=== PATIENT | male | born 1990 | race Two or more races ===

== ENCOUNTER 2024-08-25 22:07 | Inpatient (IN) | payer OTHER ==
[~2024-08-25] VITALS: Ht 177.8 cm; Wt 81.3 kg
[2024-08-25] MEDS ORDERED: 0.9% SODIUM CHLORIDE 10 ML SYRINGE IVP PRN (22:30)
[2024-08-25] MEDS: SODIUM CHLORIDE 0.9% 1,500 ML IV ONE (23:03)
[2024-08-25] MEDS: VANCOMYCIN 1GM/WATER(PEG/NADA) 200 ML IV ONE (23:03)
[2024-08-25 23:36] LABS: BASOPHILS % (AUTO) 0.4 % (0.0-2.0); EOSINOPHILS % (AUTO) 1.8 % (1.0-6.0); HEMATOCRIT 30.3 % (41-53); HEMOGLOBIN 9.7 g/dL (13.5-17.5); LYMPHOCYTES # (AUTO) 1.7 K/uL (1.0-4.8); LYMPHOCYTES % (AUTO) 11.6 % (22.0-44.0); MEAN CORPUSCULAR HEMOGLOBIN 27.3 pg (26.0-34.0); MEAN CORPUSCULAR HGB CONC 32.1 G/dL (31.0-37.0); MEAN CORPUSCULAR VOLUME 85 fL (80-100); MONOCYTES # (AUTO) 2.3 K/uL (0.1-1.0); MONOCYTES % (AUTO) 15.4 % (2.0-9.0); NEUTROPHILS # (AUTO) 10.6 K/uL (1.8-7.7); NEUTROPHILS % (AUTO) 70.8 % (40.0-70.0); PLATELET COUNT (AUTO) 402 K/uL (150-450); RED BLOOD CELL COUNT(AUTO) 3.55 MIL/uL (4.50-5.90); RED CELL DISTRIBUTION WIDTH 13.9 % (11.5-14.5)
[2024-08-25 23:43] LABS: ANION GAP 6 mmol/L (8-16); CALCIUM, TOTAL 7.9 mg/dL (8.8-10.5); CARBON DIOXIDE 31 mmol/L (22-29); CHLORIDE 99 mmol/L (98-107); CREATININE 0.55 mg/dL (0.60-1.30); GLOMERULAR FILTR. RATE CALC > 60 mL/min (>60); GLUCOSE,RANDOM 122 mg/dL (70-110); POTASSIUM 3.6 mmol/L (3.5-5.1); SODIUM SERUM 136 mmol/L (136-145); UREA NITROGEN, BLOOD 3 mg/dL (7-18)
[2024-08-25 23:47] LABS: PROTHROMBIN TIME 11.6 SEC (9.4-11.6)
[2024-08-25] MEDS ORDERED: IOHEXOL 350 MG/ML 100 ML VIAL ONE (23:50)
[2024-08-25] MEDS ORDERED: SODIUM CHLORIDE 0.9% 100 ML ONE (23:50)
[2024-08-25 23:52] LABS: LACTIC ACID 0.9 mmol/L (0.4-2.0)
[2024-08-26 03:10] VITALS: BP 101/66; PULSE 115; RESP 18; TEMP 98.9; O2SAT 98
[2024-08-26] MEDS ORDERED: MAGNESIUM HYDROXIDE SUSPENSION 30 ML UDCUP PO PRN (06:00)
[2024-08-26] MEDS ORDERED: ONDANSETRON HCL 4 MG/2 ML VIAL IVP PRN (06:00)
[2024-08-26] MEDS ORDERED: BISACODYL 10 MG RECTAL RECTAL SUPPOSITORY PR PRN (06:00)
[2024-08-26] MEDS: HEPARIN SODIUM,PORCINE 5,000 UNITS/ML VIAL SQ SCH (08:00)
[2024-08-26] MEDS: HYDROCODONE/ACETAMINOPHEN 5-325 MG TABLET PO PRN (09:07)
[2024-08-26] MEDS: DOCUSATE SODIUM 100 MG CAPSULE PO SCH (09:14)
[2024-08-26] MEDS: VANCOMYCIN 1GM/WATER(PEG/NADA) 200 ML IV SCH (09:38)
[2024-08-26] MEDS: PANTOPRAZOLE SODIUM 40 MG DR TABLET PO SCH (09:38)
[2024-08-26] MEDS: MORPHINE SULFATE 2 MG/ML SYRINGE IVP PRN (11:43)
[2024-08-26] MEDS: BUPRENORPHINE HCL/NALOXONE HCL 2-0.5 MG SUBLINGUAL TABLET SL SCH (14:45)
[2024-08-26] MEDS: VENLAFAXINE HCL 150 MG ER CAPSULE PO SCH (14:45)
[2024-08-26] MEDS: BUPRENORPHINE HCL/NALOXONE HCL 8-2 MG SUBLINGUAL TABLET SL SCH (15:27)
[2024-08-26 16:26] VITALS: BP 112/55; PULSE 111; RESP 16; TEMP 98.1
[2024-08-26 19:39] VITALS: BP 105/39; PULSE 114; RESP 18; TEMP 98.2; O2SAT 98
[2024-08-26] MEDS: QUEtiapine FUMARATE 200 MG TABLET PO SCH (22:43)
[2024-08-27 08:07] VITALS: BP 124/76; PULSE 96; RESP 20; O2SAT 96
[2024-08-27 11:50] LABS: BASOPHILS % (AUTO) 0.5 % (0.0-2.0); EOSINOPHILS % (AUTO) 2.4 % (1.0-6.0); HEMATOCRIT 27.4 % (41-53); HEMOGLOBIN 8.7 g/dL (13.5-17.5); LYMPHOCYTES # (AUTO) 1.8 K/uL (1.0-4.8); LYMPHOCYTES % (AUTO) 15.3 % (22.0-44.0); MEAN CORPUSCULAR HEMOGLOBIN 26.8 pg (26.0-34.0); MEAN CORPUSCULAR HGB CONC 31.6 G/dL (31.0-37.0); MEAN CORPUSCULAR VOLUME 85 fL (80-100); MONOCYTES # (AUTO) 1.5 K/uL (0.1-1.0); MONOCYTES % (AUTO) 12.7 % (2.0-9.0); NEUTROPHILS % (AUTO) 69.1 % (40.0-70.0); PLATELET COUNT (AUTO) 358 K/uL (150-450); RED BLOOD CELL COUNT(AUTO) 3.23 MIL/uL (4.50-5.90); WHITE BLOOD COUNT (AUTO) 11.6 K/uL (4.5-11.0)
[2024-08-27 12:07] LABS: ANION GAP 3 mmol/L (8-16); CALCIUM, TOTAL 7.8 mg/dL (8.8-10.5); CARBON DIOXIDE 31 mmol/L (22-29); CHLORIDE 105 mmol/L (98-107); CREATININE 0.56 mg/dL (0.60-1.30); GLOMERULAR FILTR. RATE CALC > 60 mL/min (>60); GLUCOSE,RANDOM 113 mg/dL (70-110); POTASSIUM 3.8 mmol/L (3.5-5.1); SODIUM SERUM 139 mmol/L (136-145); UREA NITROGEN, BLOOD 4 mg/dL (7-18); VANCOMYCIN,RANDOM 4.9 mcg/mL (25.0-50.0)
[2024-08-27 13:30] VITALS: BP 106/78; PULSE 94; RESP 18; TEMP 98.2; O2SAT 98
[2024-08-27] MEDS: VANCOMYCIN 1.25 GM/WATER(PEG) 250 ML IV SCH (15:17)
[2024-08-27 16:43] VITALS: BP 110/78; PULSE 95; RESP 17; TEMP 98.4; O2SAT 98
[2024-08-27 20:00] VITALS: BP 100/59; PULSE 95; RESP 18; TEMP 97.9; O2SAT 97
[2024-08-28] VITALS: BP 102/63; PULSE 99; RESP 17; TEMP 98.1; O2SAT 94
[2024-08-28 04:30] VITALS: BP 116/55; PULSE 102; RESP 17; TEMP 98; O2SAT 97
[2024-08-28 06:43] LABS: BASOPHILS % (AUTO) 0.3 % (0.0-2.0); EOSINOPHILS % (AUTO) 3.7 % (1.0-6.0); HEMATOCRIT 27.5 % (41-53); LYMPHOCYTES # (AUTO) 2.8 K/uL (1.0-4.8); LYMPHOCYTES % (AUTO) 23.1 % (22.0-44.0); MEAN CORPUSCULAR HEMOGLOBIN 27.8 pg (26.0-34.0); MEAN CORPUSCULAR HGB CONC 32.5 G/dL (31.0-37.0); MEAN CORPUSCULAR VOLUME 86 fL (80-100); MONOCYTES # (AUTO) 1.2 K/uL (0.1-1.0); MONOCYTES % (AUTO) 9.8 % (2.0-9.0); NEUTROPHILS # (AUTO) 7.6 K/uL (1.8-7.7); NEUTROPHILS % (AUTO) 63.1 % (40.0-70.0); PLATELET COUNT (AUTO) 403 K/uL (150-450); RED BLOOD CELL COUNT(AUTO) 3.22 MIL/uL (4.50-5.90)
[2024-08-28 07:00] LABS: ANION GAP 4 mmol/L (8-16); CARBON DIOXIDE 30 mmol/L (22-29); CHLORIDE 103 mmol/L (98-107); CREATININE 0.72 mg/dL (0.60-1.30); GLOMERULAR FILTR. RATE CALC > 60 mL/min (>60); GLUCOSE,RANDOM 100 mg/dL (70-110); POTASSIUM 3.5 mmol/L (3.5-5.1); SODIUM SERUM 137 mmol/L (136-145); UREA NITROGEN, BLOOD 7 mg/dL (7-18)
[2024-08-28 08:32] VITALS: BP 106/58; PULSE 106; RESP 18; TEMP 97.6; O2SAT 94
[2024-08-28 12:12] VITALS: BP 132/73; PULSE 71; RESP 17; TEMP 98; O2SAT 100
[2024-08-28] MEDS: GABAPENTIN 400 MG CAPSULE PO SCH (13:02)
[2024-08-28 16:05] VITALS: BP 117/76; PULSE 97; RESP 18; O2SAT 97
[2024-08-28 20:10] VITALS: BP 117/73; PULSE 112; RESP 19; TEMP 97.5; O2SAT 96
[2024-08-29 04:12] VITALS: BP 114/62; PULSE 92; RESP 17; TEMP 98.7; O2SAT 98
[2024-08-29 06:30] LABS: BASOPHILS % (AUTO) 1.3 % (0.0-2.0); HEMATOCRIT 26.7 % (41-53); HEMOGLOBIN 8.6 g/dL (13.5-17.5); LYMPHOCYTES # (AUTO) 2.3 K/uL (1.0-4.8); LYMPHOCYTES % (AUTO) 28.2 % (22.0-44.0); MEAN CORPUSCULAR HEMOGLOBIN 27.6 pg (26.0-34.0); MEAN CORPUSCULAR HGB CONC 32.3 G/dL (31.0-37.0); MEAN CORPUSCULAR VOLUME 86 fL (80-100); MONOCYTES # (AUTO) 0.9 K/uL (0.1-1.0); NEUTROPHILS # (AUTO) 4.4 K/uL (1.8-7.7); NEUTROPHILS % (AUTO) 54.5 % (40.0-70.0); PLATELET COUNT (AUTO) 365 K/uL (150-450); RED BLOOD CELL COUNT(AUTO) 3.12 MIL/uL (4.50-5.90); RED CELL DISTRIBUTION WIDTH 14.3 % (11.5-14.5); WHITE BLOOD COUNT (AUTO) 8.1 K/uL (4.5-11.0)
[2024-08-29 06:55] LABS: ANION GAP 7 mmol/L (8-16); CALCIUM, TOTAL 7.9 mg/dL (8.8-10.5); CARBON DIOXIDE 29 mmol/L (22-29); CHLORIDE 103 mmol/L (98-107); CREATININE 0.62 mg/dL (0.60-1.30); GLOMERULAR FILTR. RATE CALC > 60 mL/min (>60); GLUCOSE,RANDOM 85 mg/dL (70-110); POTASSIUM 4.1 mmol/L (3.5-5.1); SODIUM SERUM 139 mmol/L (136-145); UREA NITROGEN, BLOOD 7 mg/dL (7-18); VANCOMYCIN,RANDOM 36.5 mcg/mL (25.0-50.0)
[2024-08-29 19:01] VITALS: BP 130/73; PULSE 115; RESP 18; TEMP 98.1; O2SAT 95
[2024-08-29] MEDS ORDERED: SODIUM CHLORIDE 0.9% 500 ML IV ONE (20:00)
[2024-08-29] MEDS: VANCOMYCIN 1.25 GM/WATER(PEG) 250 ML IV SCH (20:20)
[2024-08-29 20:30] VITALS: BP 119/65; PULSE 104; RESP 20; TEMP 98.3; O2SAT 97
[2024-08-30] MEDS: VITAMINS A & D 113 GM OINTMENT TP PRN (01:49)
[2024-08-30 07:23] LABS: ANION GAP 7 mmol/L (8-16); CARBON DIOXIDE 31 mmol/L (22-29); CHLORIDE 101 mmol/L (98-107); CREATININE 0.65 mg/dL (0.60-1.30); GLOMERULAR FILTR. RATE CALC > 60 mL/min (>60); GLUCOSE,RANDOM 95 mg/dL (70-110); POTASSIUM 3.7 mmol/L (3.5-5.1); SODIUM SERUM 139 mmol/L (136-145); UREA NITROGEN, BLOOD 9 mg/dL (7-18)
[2024-08-30 07:30] LABS: CALCIUM, TOTAL 8.5 mg/dL (8.8-10.5)
[2024-08-30] MEDS: HALOPERIDOL LACTATE 5 MG/ML VIAL IM PRN (18:17)
[2024-08-30 20:16] VITALS: BP 130/72; PULSE 101; RESP 18; TEMP 98.4; O2SAT 97
[2024-08-30] MEDS: ZOLPIDEM TARTRATE 5 MG TABLET PO PRN (22:54)
[2024-08-31 03:09] VITALS: BP 122/64; PULSE 84; RESP 18; TEMP 98.2; O2SAT 96
[2024-08-31 05:49] VITALS: BP 121/61; PULSE 98; RESP 19; TEMP 98.2; O2SAT 96
[2024-08-31 07:17] LABS: ANION GAP 3 mmol/L (8-16); CALCIUM, TOTAL 8.8 mg/dL (8.8-10.5); CARBON DIOXIDE 34 mmol/L (22-29); CHLORIDE 99 mmol/L (98-107); CREATININE 0.73 mg/dL (0.60-1.30); GLOMERULAR FILTR. RATE CALC > 60 mL/min (>60); GLUCOSE,RANDOM 74 mg/dL (70-110); POTASSIUM 3.3 mmol/L (3.5-5.1); SODIUM SERUM 136 mmol/L (136-145); UREA NITROGEN, BLOOD 12 mg/dL (7-18)
[2024-08-31 09:00] VITALS: BP 126/84; PULSE 71; RESP 18; TEMP 98.3; O2SAT 96
[2024-08-31] MEDS ORDERED: POTASSIUM CHL 10 MEQ/WATER 50 ML IV PRN (12:45)
[2024-08-31] MEDS: TraMADol HCL 50 MG TABLET PO PRN (13:25)
[2024-08-31] MEDS: CLINDAMYCIN HCL 300 MG CAPSULE PO SCH (15:01)
[2024-08-31] MEDS: POTASSIUM CHLORIDE 20 MEQ ER TABLET PO PRN (15:01)
[2024-08-31] MEDS ORDERED: VANCOMYCIN 1GM/WATER(PEG/NADA) 200 ML IV SCH (16:00)
[2024-08-31 17:48] LABS: APPEARANCE,URINE CLEAR (CLEAR); BILIRUBIN,URINE NEGATIVE (NEGATIVE); COLOR,URINE COLORLESS (YELLOW); GLUCOSE, URINE (UA) NEGATIVE (NEGATIVE); KETONES,URINE NEGATIVE (NEGATIVE); LEUKOCYTE ESTERASE ,URINE NEGATIVE (NEGATIVE); NITRATE,URINE NEGATIVE (NEGATIVE); OCCULT BLOOD,URINE NEGATIVE (NEGATIVE); PH,URINE 6.5 (5.0-8.0); PROTEIN,URINE NEGATIVE (NEGATIVE); SPECIFIC GRAVITIY, URINE 1.009 (1.003-1.030); UROBILINOGEN,URINE <=1.0 mg/dL (<=1.0)
[2024-08-31 17:55] LABS: AMPHET/METH SCREEN,URINE NEGATIVE (NEGATIVE); BARBITURATE SCREEN, URINE NEGATIVE (NEGATIVE); BENZODIAZEPINES SCREEN,URINE NEGATIVE (NEGATIVE); CANNABINOID SCREEN,URINE NEGATIVE (NEGATIVE); COCAINE SCREEN,URINE NEGATIVE (NEGATIVE); METHADONE SCREEN, URINE NEGATIVE (NEGATIVE); OPIATE SCREEN,URINE POSITIVE (NEGATIVE); PHENCYCLIDINE SCREEN,URINE NEGATIVE (NEGATIVE)
[2024-08-31 17:56] LABS: ALCOHOL, URINE DRUG SCREEN NEGATIVE (NEGATIVE)
[2024-08-31 17:57] LABS: PH,URINE DRUG SCREEN 6.5 (5.0-8.0)
[2024-08-31 20:09] VITALS: BP 134/85; PULSE 102; RESP 18; TEMP 98.4; O2SAT 99
[2024-09-01] MEDS: DiphenhydrAMINE HCL 50 MG/ML VIAL IM PRN (00:47)
[2024-09-01] MEDS: ACETAMINOPHEN 325 MG TABLET PO PRN (04:45)
[2024-09-01 06:15] LABS: BASOPHILS % (AUTO) 0.8 % (0.0-2.0); EOSINOPHILS % (AUTO) 4.1 % (1.0-6.0); HEMATOCRIT 31.9 % (41-53); HEMOGLOBIN 10.6 g/dL (13.5-17.5); LYMPHOCYTES # (AUTO) 2.5 K/uL (1.0-4.8); LYMPHOCYTES % (AUTO) 34.2 % (22.0-44.0); MEAN CORPUSCULAR HEMOGLOBIN 28.2 pg (26.0-34.0); MEAN CORPUSCULAR HGB CONC 33.1 G/dL (31.0-37.0); MEAN CORPUSCULAR VOLUME 85 fL (80-100); MONOCYTES # (AUTO) 0.6 K/uL (0.1-1.0); MONOCYTES % (AUTO) 8.7 % (2.0-9.0); NEUTROPHILS # (AUTO) 3.9 K/uL (1.8-7.7); NEUTROPHILS % (AUTO) 52.2 % (40.0-70.0); PLATELET COUNT (AUTO) 506 K/uL (150-450); RED BLOOD CELL COUNT(AUTO) 3.75 MIL/uL (4.50-5.90); RED CELL DISTRIBUTION WIDTH 14.1 % (11.5-14.5); WHITE BLOOD COUNT (AUTO) 7.4 K/uL (4.5-11.0)
[2024-09-01 06:38] LABS: ALANINE AMINOTRANSFERASE 38 U/L (12-78); ALBUMIN 2.5 g/dL (3.4-5.0); ALKALINE PHOSPHATASE 79 U/L (46-116); ANION GAP 4 mmol/L (8-16); ASPARTATE AMINOTRANSFERASE 32 U/L (15-37); BILIRUBIN,TOTAL 0.2 mg/dL (0.1-1.0); CALCIUM, TOTAL 8.8 mg/dL (8.8-10.5); CARBON DIOXIDE 32 mmol/L (22-29); CHLORIDE 99 mmol/L (98-107); CREATININE 0.68 mg/dL (0.60-1.30); GLOMERULAR FILTR. RATE CALC > 60 mL/min (>60); GLUCOSE,RANDOM 73 mg/dL (70-110); POTASSIUM 3.7 mmol/L (3.5-5.1); SODIUM SERUM 135 mmol/L (136-145); TOTAL PROTEIN, SERUM 7.8 g/dL (6.4-8.2); UREA NITROGEN, BLOOD 13 mg/dL (7-18)
[2024-09-01] MEDS: TraMADol HCL 50 MG TABLET PO PRN (15:53)
[2024-09-01 19:55] VITALS: BP 124/75; PULSE 99; RESP 18; TEMP 98.2; O2SAT 99
[2024-09-02 05:15] VITALS: BP 114/68; PULSE 83; RESP 18; TEMP 97.7; O2SAT 98
[2024-09-02 08:50] VITALS: BP 137/82; PULSE 101; RESP 18; TEMP 98.8; O2SAT 99
[2024-09-02] MEDS ORDERED: BUPR1TAB46 SL (13:00)
[2024-09-02] MEDS ORDERED: BUPR1TAB45 SL (13:00)
[2024-09-02] MEDS ORDERED: CLIN300C58 PO (13:01)
[2024-09-02] MEDS ORDERED: GABA-1201 PO (13:02)
[2024-09-02] MEDS ORDERED: PANT-31 PO (13:02)
[2024-09-02] MEDS ORDERED: DOCU-385 PO (13:02)
[2024-09-02] MEDS ORDERED: QUET200T PO (13:03)
[2024-09-02] MEDS ORDERED: VENL50TA44 PO (13:03)
[2024-09-02] MEDS ORDERED: TRAM50TA5 PO (13:04)
[2024-09-02] MEDS ORDERED: MAGN-169 PO (13:04)
[2024-09-02] MEDS ORDERED: ACET-2247 PO (13:04)
[2024-09-02] MEDS ORDERED: PETR113O TD (13:05)
[2024-09-02 20:15] VITALS: BP 119/58; PULSE 97; RESP 18; TEMP 97.8; O2SAT 98
[2024-09-03 08:02] VITALS: BP 116/75; PULSE 81; RESP 18; TEMP 98; O2SAT 100
[2024-09-03] MEDS: LINEZOLID 600 MG TABLET PO SCH (10:39)
[2024-09-03 20:00] VITALS: BP 139/78; PULSE 99; RESP 20; TEMP 98.2; O2SAT 97
[2024-09-04 04:35] VITALS: BP 132/86; PULSE 93; RESP 18; TEMP 98.1; O2SAT 95
[2024-09-04 09:05] VITALS: BP 131/76; PULSE 97; RESP 20; TEMP 98.6; O2SAT 100
[2024-09-04 21:14] VITALS: BP 98/58; PULSE 95; RESP 18; TEMP 97.7; O2SAT 95
[2024-09-05 06:18] VITALS: BP 122/69; PULSE 81; RESP 18; TEMP 97.8; O2SAT 98
[2024-09-05 08:52] VITALS: BP 131/83; PULSE 96; RESP 18; TEMP 98.1; O2SAT 96
[2024-09-05] MEDS ORDERED: LINE600T14 PO (15:03)
[2024-09-05] MEDS ORDERED: BISA-151 PO (15:04)
[2024-09-05] MEDS ORDERED: VITS42.53 TP (15:06)
[2024-09-05 19:44] VITALS: BP 130/71; PULSE 96; RESP 18; TEMP 98.3; O2SAT 98
[2024-09-06 06:42] VITALS: BP 112/62; PULSE 85; RESP 18; TEMP 97.5; O2SAT 100
[2024-09-06 08:13] VITALS: BP 108/58; PULSE 85; RESP 20; TEMP 97.7; O2SAT 96
== END 2024-09-06 10:45 | DRG 602 ==
LOC: EMS 22:07 → EDH 08-26 02:49 → 5N 08-26 03:30 → 6S 08-29 18:58
PROVIDERS: ADMIT Internal Medicine; ATTEND Internal Medicine
PROC: 05HB33Z Insertion of Infusion Device into Right Basilic Vein, Percutaneous Approach (ICD-10-PCS; principal; 2024-08-28)
DX: L03.115 Cellulitis of right lower limb (principal); J15.69 Pneumonia due to other Gram-negative bacteria; F20.0 Paranoid schizophrenia; R65.10 Systemic inflammatory response syndrome (SIRS) of non-infectious origin without acute organ dysfunction; L03.116 Cellulitis of left lower limb; R73.9 Hyperglycemia, unspecified; F11.21 Opioid dependence, in remission; E87.6 Hypokalemia; D64.9 Anemia, unspecified; Z91.199 Patient's noncompliance with other medical treatment and regimen due to unspecified reason
CPT/HCPCS: 36245; 36569; 71045; 73701; 76937; 80048; 80053; 80202; 80307; 81003; 83605; 84132; 84145; 85025; 85610; 87040; 87070; 87186; 87205; 93005; 99285; J1200; J1630; J1644; J2270; J7030; J7040; J7050; 36415-L1; 36415-TC